=== PATIENT | male | born 1995 | race Caucasian/White ===

== ENCOUNTER 2018-05-24 11:41 | Emergency (ER) | payer SELFPAY ==
[~2018-05-24] VITALS: Ht 157.5 cm; Wt 61.4 kg
[2018-05-24 12:22] VITALS: BP 132/63; PULSE 52; RESP 16; Ht 157.5 cm; Wt 61.4 kg
[2018-05-24] MEDS ORDERED: ONDANSETRON (ODT) 4 MG TAB ODT STA (13:58)
[2018-05-24] MEDS ORDERED: HYDROCODONE/APAP (5/325) TAB PO ONE (14:00)
[2018-05-24] MEDS ORDERED: IBUP800T48 PO (14:35)
--- NOTE | 2018-05-24 15:34 | ERD ---
ER Documentation Chief Complaint Chief Complaint LEFT HAND SMASHED INBETWEEN 2 CARS---SWELLING/PAIN HPI 22-year-old male presenting with pain to his left hand. Patient's hand got squished between 2 cars at work. He states he has pain to his third and fourth digit. He is able to move his fingers. He is right-hand dominant. Denies any numbness or tingling. Has not taken medications for pain. Denies other medical problems. NKDA. Surgical history denies. Social history denies ROS All systems reviewed and are negative except as per history of present illness. Medications Home Meds Active Scripts Ibuprofen* (Motrin*) 800 Mg Tab, 800 MG PO Q6, #30 TAB Prov:PERLA DELEON PA-C 05/24/18 Allergies Allergies: Coded Allergies: No Known Allergy (Unverified , 05/24/18) PMhx/Soc Medical and Surgical Hx: pt denies Medical Hx, pt denies Surgical Hx Hx Alcohol Use: Yes (socially) Hx Substance Use: No Hx Tobacco Use: Yes Smoking Status: Current some day smoker FmHx Family History: No diabetes, No coronary disease, No other Physical Exam Vitals Vital Signs Date Temp Pulse Resp B/P (MAP) Pulse Ox O2 O2 Flow FiO2 Time Delivery Rate 05/24/18 98.9 52 16 132/63 100 12:22 (86) Physical Exam GENERAL: The patient is well-appearing, well-nourished, in no acute distress CHEST: Clear to auscultation bilaterally. There are no rales, wheezes or rhonchi. HEART: Regular rate and rhythm. No murmurs, clicks, rubs or gallops. EXTREMITIES: Tender to palpation the left hand. Able to isolate the DIP and PIP joint. Compartments soft. Pulses intact. NEUROLOGIC: Motor strength in all 4 extremities with 5 out of 5 strength. Sensation grossly intact. Normal speech and gait. Babinski negative. DTR 2+ throughout. SKIN: Abrasions noted to the hand. No lacerations. Results 24 hrs Current Medications Medications Dose Sig/Haim Start Time Status Last (Trade) Ordered Route PRN Stop Time Admin Dose Reason Admin 1 tab ONCE ONCE 05/24/18 DC 05/24/18 Acetaminophen PO 14:00 14:07 / 05/24/18 14:01 Hydrocodone Bitart (Eagle (5/325)) Ondansetron 4 mg ONCE STAT 05/24/18 DC 05/24/18 HCl (Zofran ODT 13:58 14:08 Odt) 05/24/18 14:00 Procedures/MDM DIAGNOSTIC IMAGING REPORT Patient: FAUSTINO GARCIA : 1995 Age: 22 Sex: M MR #: [id number] DOS: 05/24/18 1358 Ordering MD: ERIK DELEON PA-C Location: [facility] Room/Bed: AMENDMENT: 05/24/2018 3:07:42 PM Beto Lucero M.d There is a mildly displaced fracture involving the distal aspect of the distal phalanx of the third digit. PROCEDURE: Left hand x-ray CLINICAL INDICATION: pain TECHNIQUE: AP, lateral and oblique views of the left hand were obtained. COMPARISON: None FINDINGS: There is normal mineralization. No acute fracture or dislocation is seen. There are no significant degenerative changes. There is no significant soft tissue swelling. RPTAT: AA IMPRESSION: Normal x-ray of the left hand x-ray . Oblique fracture through the DIP joint 3rd. ER course: Finger splint applied in ED. Patient is neuro intact pre-and post splint application. MDM: 22-year-old male presenting with findings consistent with a finger fracture. I have low suspicion for tendon or ligament injury. Patient is recommended to follow-up with primary care and orthopedics. Patient is discharged with pain medication. Patient is told symptoms change or worsen to return to ER immediately. All questions answered discharge Departure Diagnosis: Primary Impression: Finger fracture Condition: Stable Patient Instructions: Finger and Toe Fractures (Broken Finger or Toe) Referrals: AMBER WELLS MD [facility] YOU HAVE RECEIVED A MEDICAL SCREENING EXAM AND THE RESULTS INDICATE THAT YOU DO NOT HAVE A CONDITION THAT REQUIRES URGENT TREATMENT IN THE EMERGENCY DEPARTMENT. FURTHER EVALUATION AND TREATMENT OF YOUR CONDITION CAN WAIT UNTIL YOU ARE SEEN IN YOUR DOCTORS OFFICE WITHIN THE NEXT 1-2 DAYS. IT IS YOUR RESPONSIBILITY TO MAKE AN APPOINTMENT FOR FOLOW-UP CARE. IF YOU HAVE A PRIMARY DOCTOR --you should call your primary doctor and schedule an appointment IF YOU DO NOT HAVE A PRIMARY DOCTOR YOU CAN CALL OUR PHYSICIAN REFERRAL HOTLINE AT IF YOU CAN NOT AFFORD TO SEE A PHYSICIAN YOU CAN CHOSE FROM THE FOLLOWING [facility] [address] [facility] [address] [facility] [facility] [address] [facility] [address] [facility] [address] [facility] [facility] [address] [facility] Hours: Mon-Fri 9:00 AM - 5:00 PM Additional Instructions: FOLLOW UP WITH YOUR PRIMARY CARE PHYSICIAN TOMORROW.Return to this facility if you are not improving as expected. PERLA DELEON PA-C May 24, 2018 15:34
== END 2018-05-24 15:09 | disposition home or self-care (01) ==
LOC: FTE 11:41
DX: S62.633A Displaced fracture of distal phalanx of left middle finger, initial encounter for closed fracture (principal); F17.210 Nicotine dependence, cigarettes, uncomplicated; W23.0XXA Caught, crushed, jammed, or pinched between moving objects, initial encounter; Y92.9 Unspecified place or not applicable